=== PATIENT | male | born 1960 | race Caucasian/White ===

== ENCOUNTER 2023-09-02 18:53 | Emergency (ER) | payer BC ==
[2023-09-02] MEDS ORDERED: Ketorolac 60 MG/2 ML SDV IM ONE (19:28)
[2023-09-02] MEDS ORDERED: Diazepam 5 MG Tab PO ONE (20:55)
== END 2023-09-02 21:34 | disposition home or self-care (01) ==
LOC: JD.ED 18:53
DX: M62.830 Muscle spasm of back (principal); Z87.891 Personal history of nicotine dependence; Z88.0 Allergy status to penicillin
CPT/HCPCS: 96372; 99283; A9270; J1885; J3360

== ENCOUNTER 2023-09-03 18:57 | Inpatient (IN) | payer BC ==
[2023-09-03] MEDS ORDERED: Sodium Chloride 0.9% 10 ML Syringe FLUSH PRN (19:45)
[2023-09-03] MEDS ORDERED: Naloxone 0.4 MG/ML SDV IVPUSH PRN ×2 (19:52→21:25)
[2023-09-03] MEDS ORDERED: Lactated Ringers 1,000 ML IV ONE ×2 (19:52→22:13)
[2023-09-03] MEDS ORDERED: Ondansetron 4 MG/2 ML SDV IVPUSH ONE (19:52)
[2023-09-03] MEDS ORDERED: fentaNYL 100 MCG/2 ML SDV IVPUSH ONE ×2 (19:52→21:25)
[2023-09-03 20:15] LABS: BASOPHILS PERCENT AUTO 0.2 % (0.0-1.0); EOSINOPHILS PERCENT AUTO 0.1 % (0.0-6.0); HEMATOCRIT 41.5 % (42.0-52.0); IMMATURE GRAN ABSOLUTE AUTO 0.06 K/mm3 (0.00-0.05); IMMATURE GRAN PERCENT AUTO 0.7 % (0.0-0.4); LYMPHOCYTES ABSOLUTE AUTO 0.3 K/mm3 (1.0-4.8); MEAN CORPUSCULAR HEMOGLOBIN 32.2 pg (28.0-32.0); MEAN CORPUSCULAR HGB CONC 36.1 g/dl (32.0-36.0); MEAN CORPUSCULAR VOLUME 89.1 fl (83.0-99.0); MEAN PLATELET VOLUME 8.6 fl (9.4-12.4); MONOCYTES ABSOLUTE AUTO 0.6 K/mm3 (0.0-0.8); MONOCYTES PERCENT AUTO 7.1 % (0.0-8.0); NEUTROPHILS ABSOLUTE AUTO 7.3 K/mm3 (1.8-7.7); NEUTROPHILS PERCENT AUTO 87.9 % (41.0-71.0); PLATELET COUNT,PLT 193 K/mm3 (150-400); RED BLOOD CELL COUNT 4.66 M/mm3 (4.52-5.90); WHITE BLOOD CELL COUNT,WBC 8.27 K/mm3 (3.9-11.3)
[2023-09-03 20:39] LABS: LACTIC ACID 1.1 mmol/L (0.4-2.0)
[2023-09-03 21:05] LABS: A/G RATIO 0.8 (1-2); ALBUMIN 3.1 g/dl (3.4-5.0); ANION GAP 14.7 (5-15); BILIRUBIN TOTAL 1.7 mg/dL (0.2-1.0); CALCIUM 8.8 mg/dL (8.5-10.1); CREATININE 1.2 mg/dL (0.7-1.3); EST CRCL DRUG DOSING (CG) 63.83 mL/min; POTASSIUM,K 3.7 mEq/L (3.5-5.1); PROTEIN TOTAL,TP 7.1 g/dl (6.4-8.2)
[2023-09-03 21:30] LABS: C-REACTIVE PROTEIN 18.1 mg/dL (<1.0)
[2023-09-03] MEDS ORDERED: fentaNYL 100 MCG/2 ML SDV IVPUSH PRN (22:59)
[2023-09-04] MEDS: HYDROmorphone 1 MG/ML Syringe IVPUSH PRN ×8 (00:01→17:07)
[2023-09-04] MEDS: Sodium Chloride 0.9% 1,000 ML IV SCH ×2 (00:30→14:49)
[2023-09-04 04:01] LABS: APPEARANCE,URINE CLEAR (Clear); BILIRUBIN,URINE 1+ (Negative); COLOR,URINE AMBER (Yellow); GLUCOSE,URINE NEGATIVE (Negative); KETONES,URINE 3+ (Negative); LEUKOCYTE ESTERASE,URINE NEGATIVE (Negative); NITRITE,URINE NEGATIVE (Negative); OCCULT BLOOD,URINE 2+ (Negative); PROTEIN,URINE 2+ (Negative)
[2023-09-04 04:07] LABS: BACTERIA,URINE FEW /hpf (FEW); EPITHELIAL CELLS,URINE NOT SEEN /hpf (0-5); MUCUS,URINE NOT SEEN /hpf (FEW); WBC,URINE 0-5 /hpf (0-5)
[2023-09-04 05:24] LABS: BASOPHILS PERCENT AUTO 0.4 % (0.0-1.0); HEMOGLOBIN 14.1 gm/dl (14.0-18.0); IMMATURE GRAN ABSOLUTE AUTO 0.06 K/mm3 (0.00-0.05); IMMATURE GRAN PERCENT AUTO 0.9 % (0.0-0.4); LYMPHOCYTES ABSOLUTE AUTO 0.5 K/mm3 (1.0-4.8); MEAN CORPUSCULAR HEMOGLOBIN 32.2 pg (28.0-32.0); MEAN CORPUSCULAR HGB CONC 36.2 g/dl (32.0-36.0); MEAN PLATELET VOLUME 8.6 fl (9.4-12.4); MONOCYTES ABSOLUTE AUTO 0.7 K/mm3 (0.0-0.8); MONOCYTES PERCENT AUTO 9.4 % (0.0-8.0); NEUTROPHILS ABSOLUTE AUTO 5.8 K/mm3 (1.8-7.7); NEUTROPHILS PERCENT AUTO 82.3 % (41.0-71.0); PLATELET COUNT,PLT 186 K/mm3 (150-400); RED BLOOD CELL COUNT 4.38 M/mm3 (4.52-5.90); WHITE BLOOD CELL COUNT,WBC 7.04 K/mm3 (3.9-11.3)
[2023-09-04 05:51] LABS: A/G RATIO 0.7 (1-2); ALBUMIN 2.7 g/dl (3.4-5.0); ANION GAP 14.7 (5-15); BILIRUBIN TOTAL 1.3 mg/dL (0.2-1.0); BUN/CREATININE RATIO 17.3 (14-18); CREATININE 1.1 mg/dL (0.7-1.3); EST CRCL DRUG DOSING (CG) 69.63 mL/min; POTASSIUM,K 3.7 mEq/L (3.5-5.1); PROTEIN TOTAL,TP 6.6 g/dl (6.4-8.2)
[2023-09-04 06:05] LABS: CALCIUM 8.5 mg/dL (8.5-10.1)
[2023-09-04 06:29] LABS: C-REACTIVE PROTEIN 16.8 mg/dL (<1.0)
[2023-09-04] MEDS ORDERED: HYDROmorphone 1 MG/ML Syringe IVPUSH ONE (08:26)
[2023-09-04] MEDS ORDERED: Acetaminophen 325 MG Tab PO ONE (08:34)
[2023-09-04] MEDS ORDERED: LORazepam 2 MG/ML SDV IVPUSH ONE (08:36)
[2023-09-04] MEDS ORDERED: Ondansetron 4 MG/2 ML SDV IV PRN (08:37)
[2023-09-04] MEDS: Docusate Sodium 100 MG Cap PO SCH ×2 (08:45→21:08)
[2023-09-04] MEDS ORDERED: Ketorolac 30 MG/ML SDV IVPUSH ONE (09:45)
[2023-09-04] MEDS: Meropenem 500 MG in Sodium Chloride 0.9% 100 ML IV SCH ×3 (09:46→21:08)
[2023-09-04] MEDS ORDERED: Iopamidol 755 Mg/ML 100 ML Bottle IVPUSH ONE (11:27)
[2023-09-04] MEDS ORDERED: Sodium Chloride 0.9% 10 ML Syringe FLUSH PRN (11:27)
[2023-09-04] MEDS ORDERED: Sodium Chloride 0.9% 100 ML IV SCH (11:30)
[2023-09-04] MEDS: Ketorolac 30 MG/ML SDV IVPUSH PRN ×2 (14:52→21:04)
[2023-09-04] MEDS: Cyclobenzaprine 10 MG Tab PO PRN (14:53)
[2023-09-04] MEDS ORDERED: Gadoxetate Disodium 10 ML SDV IV ONE (15:49)
[2023-09-04] MEDS ORDERED: Sodium Chloride 0.9% 10 ML Syringe FLUSH SCH (16:00)
[2023-09-04] MEDS: Acetaminophen 325 MG Tab PO PRN (17:12)
[2023-09-04] MEDS ORDERED: Polyethylene Glycol 3350 Powder 17 GM Packet PO ONE (17:33)
[2023-09-05] MEDS: Sodium Chloride 0.9% 1,000 ML IV SCH ×2 (01:32→13:45)
[2023-09-05] MEDS: Acetaminophen 325 MG Tab PO PRN ×4 (01:41→20:07)
[2023-09-05] MEDS: HYDROmorphone 1 MG/ML Syringe IVPUSH PRN ×2 (01:43→07:06)
[2023-09-05] MEDS: Meropenem 500 MG in Sodium Chloride 0.9% 100 ML IV SCH ×4 (01:59→20:09)
[2023-09-05] MEDS: Ketorolac 30 MG/ML SDV IVPUSH PRN ×4 (03:54→22:36)
[2023-09-05 06:45] LABS: BASOPHILS PERCENT AUTO 0.4 % (0.0-1.0); HEMATOCRIT 39.8 % (42.0-52.0); HEMOGLOBIN 14.1 gm/dl (14.0-18.0); IMMATURE GRAN ABSOLUTE AUTO 0.06 K/mm3 (0.00-0.05); IMMATURE GRAN PERCENT AUTO 1.1 % (0.0-0.4); LYMPHOCYTES ABSOLUTE AUTO 0.4 K/mm3 (1.0-4.8); LYMPHOCYTES PERCENT AUTO 6.9 % (24.0-44.0); MEAN CORPUSCULAR HEMOGLOBIN 31.9 pg (28.0-32.0); MEAN CORPUSCULAR HGB CONC 35.4 g/dl (32.0-36.0); MEAN PLATELET VOLUME 8.6 fl (9.4-12.4); MONOCYTES ABSOLUTE AUTO 0.5 K/mm3 (0.0-0.8); MONOCYTES PERCENT AUTO 8.6 % (0.0-8.0); NEUTROPHILS ABSOLUTE AUTO 4.4 K/mm3 (1.8-7.7); PLATELET COUNT,PLT 166 K/mm3 (150-400); RED BLOOD CELL COUNT 4.42 M/mm3 (4.52-5.90); WHITE BLOOD CELL COUNT,WBC 5.25 K/mm3 (3.9-11.3)
[2023-09-05 07:09] LABS: A/G RATIO 0.6 (1-2); ALBUMIN 2.4 g/dl (3.4-5.0); ANION GAP 15.2 (5-15); BILIRUBIN TOTAL 1.3 mg/dL (0.2-1.0); BUN/CREATININE RATIO 25.5 (14-18); CALCIUM 8.3 mg/dL (8.5-10.1); CREATININE 1.1 mg/dL (0.7-1.3); EST CRCL DRUG DOSING (CG) 69.63 mL/min; MAGNESIUM 2.1 mg/dL (1.8-2.4); POTASSIUM,K 4.2 mEq/L (3.5-5.1); PROTEIN TOTAL,TP 6.4 g/dl (6.4-8.2)
[2023-09-05 07:29] LABS: C-REACTIVE PROTEIN 21.1 mg/dL (<1.0)
[2023-09-05] MEDS ORDERED: oxyCODONE 5 MG Tab PO PRN (07:53)
[2023-09-05] MEDS ORDERED: Ondansetron 4 MG/2 ML SDV IVPUSH PRN (08:33)
[2023-09-05] MEDS ORDERED: diphenhydrAMINE 50 MG/ML SDV IVPUSH PRN (08:33)
[2023-09-05] MEDS ORDERED: diphenhydrAMINE 25 MG Cap PO PRN (08:33)
[2023-09-05] MEDS ORDERED: Naloxone 0.4 MG/ML SDV IVPUSH PRN (08:33)
[2023-09-05] MEDS ORDERED: HYDROmorphone 1 MG/ML Syringe IVPUSH ONE (08:45)
[2023-09-05] MEDS: Cyclobenzaprine 10 MG Tab PO PRN (09:03)
[2023-09-05] MEDS: Polyethylene Glycol 3350 Powder 17 GM Packet PO SCH (09:04)
[2023-09-05] MEDS: Docusate Sodium 100 MG Cap PO SCH ×2 (09:04→20:05)
[2023-09-05] MEDS ORDERED: Sodium Chloride 0.9% 1,000 ML IV ONE (10:30)
[2023-09-05] MEDS: HYDROmorphone/Normal Saline 6 MG/30 ML PCA Vial IV PRN (13:16)
[2023-09-05] MEDS: Lidocaine 4% 1 each Patch TOP SCH (14:04)
[2023-09-05 19:53] LABS: C. TRACHOMATIS BY PCR NOT DETECTED; N. GONORRHOEAE BY PCR NOT DETECTED
[2023-09-06] MEDS: Meropenem 500 MG in Sodium Chloride 0.9% 100 ML IV SCH ×4 (02:53→20:36)
[2023-09-06] MEDS: HYDROmorphone/Normal Saline 6 MG/30 ML PCA Vial IV PRN ×2 (03:20→18:41)
[2023-09-06] MEDS: Ketorolac 30 MG/ML SDV IVPUSH PRN ×3 (05:02→17:14)
[2023-09-06] MEDS: Acetaminophen 325 MG Tab PO PRN ×3 (05:09→15:33)
[2023-09-06 06:11] LABS: BASOPHILS PERCENT AUTO 0.3 % (0.0-1.0); EOSINOPHILS PERCENT AUTO 0.2 % (0.0-6.0); HEMATOCRIT 37.2 % (42.0-52.0); HEMOGLOBIN 13.4 gm/dl (14.0-18.0); IMMATURE GRAN ABSOLUTE AUTO 0.04 K/mm3 (0.00-0.05); IMMATURE GRAN PERCENT AUTO 0.6 % (0.0-0.4); LYMPHOCYTES ABSOLUTE AUTO 0.4 K/mm3 (1.0-4.8); LYMPHOCYTES PERCENT AUTO 6.6 % (24.0-44.0); MEAN CORPUSCULAR VOLUME 88.8 fl (83.0-99.0); MEAN PLATELET VOLUME 8.9 fl (9.4-12.4); MONOCYTES ABSOLUTE AUTO 0.7 K/mm3 (0.0-0.8); MONOCYTES PERCENT AUTO 10.1 % (0.0-8.0); NEUTROPHILS ABSOLUTE AUTO 5.5 K/mm3 (1.8-7.7); NEUTROPHILS PERCENT AUTO 82.2 % (41.0-71.0); PLATELET COUNT,PLT 172 K/mm3 (150-400); RED BLOOD CELL COUNT 4.19 M/mm3 (4.52-5.90); WHITE BLOOD CELL COUNT,WBC 6.63 K/mm3 (3.9-11.3)
[2023-09-06 06:35] LABS: A/G RATIO 0.5 (1-2); ALBUMIN 2.1 g/dl (3.4-5.0); ANION GAP 15.7 (5-15); BILIRUBIN TOTAL 1.7 mg/dL (0.2-1.0); EST CRCL DRUG DOSING (CG) 76.59 mL/min; POTASSIUM,K 3.7 mEq/L (3.5-5.1); VANCOMYCIN RANDOM 7.7 ug/mL
[2023-09-06 07:17] LABS: C-REACTIVE PROTEIN 21.5 mg/dL (<1.0)
[2023-09-06] MEDS: Docusate Sodium 100 MG Cap PO SCH ×2 (09:03→20:37)
[2023-09-06] MEDS: Lidocaine 4% 1 each Patch TOP SCH (09:03)
[2023-09-06] MEDS: Enoxaparin 40 MG/0.4 ML Syringe SUBCUT SCH (09:03)
[2023-09-06] MEDS: Polyethylene Glycol 3350 Powder 17 GM Packet PO SCH (09:03)
[2023-09-06] MEDS: VANCOmycin 1.25 GM/250 ML 1.25 GM in Premix Bag 1 BAG IV SCH ×2 (09:34→22:31)
[2023-09-06] MEDS: Sodium Chloride 0.9% 1,000 ML IV SCH (22:33)
[2023-09-07] MEDS: Acetaminophen 325 MG Tab PO PRN ×2 (00:15→09:20)
[2023-09-07] MEDS: Meropenem 500 MG in Sodium Chloride 0.9% 100 ML IV SCH ×2 (03:29→08:24)
[2023-09-07 05:29] LABS: BASOPHILS PERCENT AUTO 0.5 % (0.0-1.0); EOSINOPHILS ABSOLUTE AUTO 0.1 K/mm3 (0.0-0.4); EOSINOPHILS PERCENT AUTO 1.9 % (0.0-6.0); HEMATOCRIT 34.1 % (42.0-52.0); HEMOGLOBIN 12.3 gm/dl (14.0-18.0); IMMATURE GRAN ABSOLUTE AUTO 0.05 K/mm3 (0.00-0.05); IMMATURE GRAN PERCENT AUTO 0.9 % (0.0-0.4); LYMPHOCYTES ABSOLUTE AUTO 0.7 K/mm3 (1.0-4.8); LYMPHOCYTES PERCENT AUTO 11.3 % (24.0-44.0); MEAN CORPUSCULAR HEMOGLOBIN 31.5 pg (28.0-32.0); MEAN CORPUSCULAR HGB CONC 36.1 g/dl (32.0-36.0); MEAN CORPUSCULAR VOLUME 87.2 fl (83.0-99.0); MEAN PLATELET VOLUME 9.2 fl (9.4-12.4); MONOCYTES ABSOLUTE AUTO 0.7 K/mm3 (0.0-0.8); MONOCYTES PERCENT AUTO 11.5 % (0.0-8.0); NEUTROPHILS ABSOLUTE AUTO 4.3 K/mm3 (1.8-7.7); NEUTROPHILS PERCENT AUTO 73.9 % (41.0-71.0); PLATELET COUNT,PLT 195 K/mm3 (150-400); RED BLOOD CELL COUNT 3.91 M/mm3 (4.52-5.90); WHITE BLOOD CELL COUNT,WBC 5.84 K/mm3 (3.9-11.3)
[2023-09-07 06:13] LABS: A/G RATIO 0.5 (1-2); ANION GAP 12.4 (5-15); BILIRUBIN TOTAL 1.2 mg/dL (0.2-1.0); CALCIUM 8.1 mg/dL (8.5-10.1); EST CRCL DRUG DOSING (CG) 76.59 mL/min; POTASSIUM,K 3.4 mEq/L (3.5-5.1); PROTEIN TOTAL,TP 5.7 g/dl (6.4-8.2)
[2023-09-07 06:45] LABS: C-REACTIVE PROTEIN 19.8 mg/dL (<1.0)
[2023-09-07] MEDS: Ketorolac 30 MG/ML SDV IVPUSH PRN ×2 (08:19→17:44)
[2023-09-07] MEDS: Enoxaparin 40 MG/0.4 ML Syringe SUBCUT SCH (08:23)
[2023-09-07] MEDS: Lidocaine 4% 1 each Patch TOP SCH (08:23)
[2023-09-07] MEDS: Potassium Chloride 20 MEQ Tab.ER PO SCH ×2 (08:23→20:34)
[2023-09-07] MEDS: Docusate Sodium 100 MG Cap PO SCH ×2 (08:24→20:34)
[2023-09-07] MEDS: Polyethylene Glycol 3350 Powder 17 GM Packet PO SCH (08:24)
[2023-09-07] MEDS: cefTRIAXone 2 GM in Sodium Chloride 0.9% 100 ML IV SCH (09:23)
[2023-09-07] MEDS: HYDROmorphone/Normal Saline 6 MG/30 ML PCA Vial IV PRN (13:07)
[2023-09-08] MEDS: Ketorolac 30 MG/ML SDV IVPUSH PRN (03:23)
[2023-09-08 05:32] LABS: BASOPHILS PERCENT AUTO 0.8 % (0.0-1.0); EOSINOPHILS ABSOLUTE AUTO 0.2 K/mm3 (0.0-0.4); EOSINOPHILS PERCENT AUTO 2.9 % (0.0-6.0); HEMATOCRIT 33.3 % (42.0-52.0); HEMOGLOBIN 12.1 gm/dl (14.0-18.0); IMMATURE GRAN PERCENT AUTO 1.9 % (0.0-0.4); LYMPHOCYTES ABSOLUTE AUTO 0.7 K/mm3 (1.0-4.8); MEAN CORPUSCULAR HEMOGLOBIN 31.4 pg (28.0-32.0); MEAN CORPUSCULAR HGB CONC 36.3 g/dl (32.0-36.0); MEAN CORPUSCULAR VOLUME 86.5 fl (83.0-99.0); MONOCYTES ABSOLUTE AUTO 0.5 K/mm3 (0.0-0.8); MONOCYTES PERCENT AUTO 9.1 % (0.0-8.0); NEUTROPHILS ABSOLUTE AUTO 3.7 K/mm3 (1.8-7.7); NEUTROPHILS PERCENT AUTO 72.3 % (41.0-71.0); PLATELET COUNT,PLT 242 K/mm3 (150-400); RED BLOOD CELL COUNT 3.85 M/mm3 (4.52-5.90); WHITE BLOOD CELL COUNT,WBC 5.14 K/mm3 (3.9-11.3)
[2023-09-08 06:08] LABS: A/G RATIO 0.6 (1-2); ALBUMIN 2.1 g/dl (3.4-5.0); ANION GAP 11.2 (5-15); BILIRUBIN TOTAL 0.7 mg/dL (0.2-1.0); BUN/CREATININE RATIO 17.8 (14-18); CALCIUM 8.2 mg/dL (8.5-10.1); CREATININE 0.9 mg/dL (0.7-1.3); EST CRCL DRUG DOSING (CG) 85.1 mL/min; POTASSIUM,K 3.2 mEq/L (3.5-5.1); PROTEIN TOTAL,TP 5.8 g/dl (6.4-8.2)
[2023-09-08 06:19] LABS: C-REACTIVE PROTEIN 13.3 mg/dL (<1.0)
[2023-09-08] MEDS: cefTRIAXone 2 GM in Sodium Chloride 0.9% 100 ML IV SCH (09:40)
[2023-09-08] MEDS: Enoxaparin 40 MG/0.4 ML Syringe SUBCUT SCH (09:44)
[2023-09-08] MEDS: Polyethylene Glycol 3350 Powder 17 GM Packet PO SCH (09:46)
[2023-09-08] MEDS: Docusate Sodium 100 MG Cap PO SCH ×2 (09:46→20:02)
[2023-09-08] MEDS: Lidocaine 4% 1 each Patch TOP SCH (11:05)
[2023-09-08] MEDS: Acetaminophen 325 MG Tab PO PRN (15:24)
[2023-09-09] MEDS: Acetaminophen 325 MG Tab PO PRN ×2 (00:51→07:31)
[2023-09-09 05:29] LABS: BASOPHILS ABSOLUTE AUTO 0.1 K/mm3 (0.0-0.2); BASOPHILS PERCENT AUTO 0.9 % (0.0-1.0); EOSINOPHILS ABSOLUTE AUTO 0.2 K/mm3 (0.0-0.4); EOSINOPHILS PERCENT AUTO 3.3 % (0.0-6.0); HEMATOCRIT 36.2 % (42.0-52.0); HEMOGLOBIN 12.9 gm/dl (14.0-18.0); IMMATURE GRAN ABSOLUTE AUTO 0.27 K/mm3 (0.00-0.05); IMMATURE GRAN PERCENT AUTO 4.7 % (0.0-0.4); LYMPHOCYTES ABSOLUTE AUTO 1.1 K/mm3 (1.0-4.8); MEAN CORPUSCULAR HEMOGLOBIN 30.9 pg (28.0-32.0); MEAN CORPUSCULAR HGB CONC 35.6 g/dl (32.0-36.0); MEAN CORPUSCULAR VOLUME 86.6 fl (83.0-99.0); MEAN PLATELET VOLUME 8.6 fl (9.4-12.4); MONOCYTES ABSOLUTE AUTO 0.5 K/mm3 (0.0-0.8); MONOCYTES PERCENT AUTO 8.5 % (0.0-8.0); NEUTROPHILS ABSOLUTE AUTO 3.7 K/mm3 (1.8-7.7); NEUTROPHILS PERCENT AUTO 63.6 % (41.0-71.0); PLATELET COUNT,PLT 288 K/mm3 (150-400); RED BLOOD CELL COUNT 4.18 M/mm3 (4.52-5.90); WHITE BLOOD CELL COUNT,WBC 5.75 K/mm3 (3.9-11.3)
[2023-09-09 05:39] LABS: ANION GAP 14.4 (5-15); CALCIUM 8.7 mg/dL (8.5-10.1); CREATININE 0.9 mg/dL (0.7-1.3); EST CRCL DRUG DOSING (CG) 85.1 mL/min; POTASSIUM,K 3.4 mEq/L (3.5-5.1)
[2023-09-09 06:06] LABS: SLIDE REVIEW ABNORMAL SMEAR
[2023-09-09] MEDS: Lidocaine 4% 1 each Patch TOP SCH (09:50)
[2023-09-09] MEDS: Enoxaparin 40 MG/0.4 ML Syringe SUBCUT SCH (09:50)
[2023-09-09] MEDS: cefTRIAXone 2 GM in Sodium Chloride 0.9% 100 ML IV SCH (09:51)
[2023-09-09] MEDS ORDERED: Losartan 25 MG Tab PO SCH (09:54)
[2023-09-09] MEDS: Docusate Sodium 100 MG Cap PO SCH (10:05)
[2023-09-09] MEDS: Polyethylene Glycol 3350 Powder 17 GM Packet PO SCH (10:05)
[2023-09-09 22:41] LABS: MYCOPLASMA HOMINIS BY PCR Not Detected; UREAPLASMA & MYCOPLASMA SOURCE Urine; UREAPLASMA PARVUM BY PCR Not Detected; UREAPLASMA UREALYTICUM BY PCR Not Detected
== END 2023-09-09 12:13 | disposition home or self-care (01) | DRG 347 ==
LOC: JD.ED 18:57 → JD.MS 22:36
PROVIDERS: ADMIT Internal Medicine; ATTEND Internal Medicine
DX: M54.50 Low back pain, unspecified (principal); A40.8 Other streptococcal sepsis; R65.20 Severe sepsis without septic shock; J96.01 Acute respiratory failure with hypoxia; E87.6 Hypokalemia; K59.00 Constipation, unspecified; E87.1 Hypo-osmolality and hyponatremia; K76.9 Liver disease, unspecified; Z88.0 Allergy status to penicillin; Z79.899 Other long term (current) drug therapy
CPT/HCPCS: 36415; 72148; 72148-26; 74175; 74175-26; 74178; 74178-26; 74183; 74183-26; 80048; 80053; 80202; 81001; 82947; 83605; 83690; 83735; 84145; 84484; 85025; 85652; 86140; 86592; 87040; 87077; 87086; 87154; 87186; 87491; 87563; 87591; 87798; 93307; 94762; 96361; 96374; 96375; 96376; 97161-GP; 99222; 99232; 99233; 99239; 99284; 99284-25; A9270-GY; A9581; J0696; J1170; J1650; J1885; J2060; J2185; J2405; J3010; J3370; J3490; J7030; J7050; J7120; Q9967

== ENCOUNTER 2025-07-10 08:01 | Day surgery (SDC) | payer BC ==
[2025-07-10] MEDS: Polymyxin B/Trimethoprim 10 ML Bottle EYELF SCH (09:39)
[2025-07-10] MEDS: Tropicamide 1% Ophth Soln 3 ML Bottle EYELF SCH (09:56)
[2025-07-10] MEDS: Tetracaine HCl/PF 0.5% 4 ML Bottle EYEBOTH SCH (10:39)
[2025-07-10] MEDS: Lidocaine 1% PF 2 ML SDV INJECT SCH (11:05)
[2025-07-10] MEDS: Cefuroxime 10 MG/ML SYRINGE EYELF SCH (11:19)
[2025-07-10] MEDS: Pilocarpine 4% Ophth Soln 15 ML Bot EYELF SCH (11:20)
== END 2025-07-10 11:27 ==
LOC: JD.SDS 08:01
PROVIDERS: ATTEND Ophthalmology
DX: H25.813 Combined forms of age-related cataract, bilateral (principal); H40.013 Open angle with borderline findings, low risk, bilateral; H11.153 Pinguecula, bilateral; H11.823 Conjunctivochalasis, bilateral; H57.813 Brow ptosis, bilateral; H02.831 Dermatochalasis of right upper eyelid; H02.834 Dermatochalasis of left upper eyelid; I10 Essential (primary) hypertension; Z88.1 Allergy status to other antibiotic agents; Z87.891 Personal history of nicotine dependence; Z79.899 Other long term (current) drug therapy
CPT/HCPCS: 66984; A9270; J0697; J2003; 00142; J3490; V2632